=== PATIENT | male | born 1970 | race Caucasian/White ===

== ENCOUNTER → 2018-05-11 | Outpatient (CLI) | payer BC ==
[~2018-05-11] MED LIST: GADOBUTROL 10 ML VIAL IVP ONE; IOPAMIDOL (ISOVUE 370) 100 ML BTL IV ONE; LIDOCAINE 1% 300 MG/30 ML SDV ONE
== END ==
LOC: FIMAGING 10:04
PROVIDERS: ATTEND Physical Medicine & Rehabilitation
PROC: 3E0U3HZ Introduction of Radioactive Substance into Joints, Percutaneous Approach (ICD-10-PCS; principal; 2018-05-11)
DX: M25.531 Pain in right wrist (principal)
CPT/HCPCS: A9585; Q9967